=== PATIENT | male | born 1960 | race Caucasian/White ===

== ENCOUNTER 2022-03-02 00:27 | Day surgery (SDC) | payer BC, SELFPAY ==
[2022-02-16 14:58] VITALS: BMI 32.7
--- NOTE | 2022-03-01 15:22 | PM.HPGS ---
History of Present Illness History of Present Illness Consent: Risks, benefits, and alternatives have been discussed and questions answered. Patient agrees to proceed with procedure. Chief complaint: neoplasm screening Narrative: Javier Sparrow is a 61 year old male Referred for colon cancer screening. This will be his 1st colonoscopy. Review of Systems Review of Systems: All systems reviewed & are unremarkable except as noted in HPI and below PMFSH Past Medical History Medical History Acute non-recurrent maxillary sinusitis Anemia (02/03/22) hemoglobin 12.3 with iron 68, vitamin B12 705, folate 19.9 on 02/03/2022. BMI 32.0-32.9,adult BMI 34.0-34.9,adult Change in consistency of stool Colon cancer screening Encounter for wellness examination in adult Gastroesophageal reflux disease without esophagitis History of thyroid cancer History of URI (upper respiratory infection) Hyperlipidemia Cholesterol 126, triglycerides 92, HDL 44, LDL 64 on 02/03/2022. Hypersomnia Impacted cerumen of both ears Irritable bowel syndrome with both constipation and diarrhea Nail fungus both feet Nicotine vapor product user Obesity (BMI 30.0-34.9) Postsurgical hypothyroidism TSH suppressed at 0.09 on 02/03/2022. Primary hypertension Prostate cancer screening PSA 0.59 on 02/03/2022. Restless leg syndrome Iron normal at 68 on 02/03/2022. Seasonal allergic rhinitis Snoring Type 2 diabetes mellitus with diabetic polyneuropathy, without long-term current use of insulin Glucose 163 , hemoglobin A1c 7.1 with urine microalbumin ratio of 7 on 02/03/2022. Family History Family History Father Family history of malignant neoplasm, Onset Age: 78 Mother Family history of malignant neoplasm, Onset Age: 87 Grandparent Family history of malignant neoplasm, Onset Age: 68 Social History Social History Smoking status: Current every day smoker Tobacco type: e-cigarettes/vaping Second hand tobacco smoke exposure: No Alcohol intake: current Alcohol use details: rare Substance use: never Substance use type: does not use Living arrangements: with family Spiritual care concerns: No Meds Home Medications and Allergies Home Medications Medication Instructions Recorded Confirmed Type atorvastatin 40 mg tablet 40 mg PO DAILY #90 tablet 02/02/22 03/02/22 Rx fluticasone propionate 50 1 spray NASAL BID #48 ml 02/02/22 03/02/22 Rx mcg/actuation nasal spray,suspension glipizide 5 mg tablet, extended 5 mg PO . Q.a.m. #90 tablet 02/02/22 03/02/22 Rx release 24 hr hydrochlorothiazide 25 mg tablet 25 mg PO DAILY #90 tablet 02/02/22 03/02/22 Rx lisinopril 40 mg tablet 40 mg PO DAILY #90 tablet 02/02/22 03/02/22 Rx metformin 750 mg tablet,extended 2,250 mg PO DAILY #270 tablet 02/02/22 03/02/22 Rx release 24 hr pantoprazole 40 mg tablet,delayed 40 mg PO BID #180 tablet 02/02/22 03/02/22 Rx release levothyroxine 200 mcg tablet 100 mcg PO DAILY #90 tablet 02/05/22 03/02/22 Rx Allergies Allergy/AdvReac Type Severity Reaction Status Date / Time No Known Allergies Allergy Verified 03/02/22 09:15 Exam Resp: Auscultation: clear to auscultation bilaterally Cardio: Rate: regular rate Rhythm: regular rhythm GI: GI Palp: Yes Soft to palpation and No Tenderness to palpation present (GI) Assessment and Plan Assessment and plan (1) Colon cancer screening: Code(s): Z12.11 - Encounter for screening for malignant neoplasm of colon Status: Acute Assessment and Plan: Colonoscopy with possible biopsy or polypectomy or cautery or injection of substances.
--- NOTE | 2022-03-02 08:58 | WPDANESEPPF ---
Anes - Initial Pre Proc Eval Procedure: Operation Date: 03/02/22 10:30 Proposed Procedures p Screening Colonoscopy - Horace Tan MD Date/Time: 03/02/22 08:58 Surgeon: Horace Tan MD Pre Op Diagnosis: neoplasm screening Patient Data Age: 61 Gender: M Height: 1.93 m Weight: 122 kg Allergies Allergy/AdvReac Type Severity Reaction Status Date / Time No Known Allergies Allergy Verified 03/02/22 09:15 Home Medications Medication Instructions Recorded Confirmed Type atorvastatin 40 mg tablet 40 mg PO DAILY #90 tablet 02/02/22 03/02/22 Rx fluticasone propionate 50 1 spray NASAL BID #48 ml 02/02/22 03/02/22 Rx mcg/actuation nasal spray,suspension glipizide 5 mg tablet, extended 5 mg PO . Q.a.m. #90 tablet 02/02/22 03/02/22 Rx release 24 hr hydrochlorothiazide 25 mg tablet 25 mg PO DAILY #90 tablet 02/02/22 03/02/22 Rx lisinopril 40 mg tablet 40 mg PO DAILY #90 tablet 02/02/22 03/02/22 Rx metformin 750 mg tablet,extended 2,250 mg PO DAILY #270 tablet 02/02/22 03/02/22 Rx release 24 hr pantoprazole 40 mg tablet,delayed 40 mg PO BID #180 tablet 02/02/22 03/02/22 Rx release levothyroxine 200 mcg tablet 100 mcg PO DAILY #90 tablet 02/05/22 03/02/22 Rx Patient hx anesthesia problems: none Family hx anesthesia problems: none Results Review: All pre-operative results and documents have been reviewed as part of the pre-operative evaluation. [facility] Past Medical History Medical History (Updated 02/16/22 @ 12:46 by Fredi Rincon MD) Acute non-recurrent maxillary sinusitis Anemia (02/03/22) hemoglobin 12.3 with iron 68, vitamin B12 705, folate 19.9 on 02/03/2022. BMI 32.0-32.9,adult BMI 34.0-34.9,adult Change in consistency of stool Colon cancer screening Encounter for wellness examination in adult Gastroesophageal reflux disease without esophagitis History of thyroid cancer History of URI (upper respiratory infection) Hyperlipidemia Cholesterol 126, triglycerides 92, HDL 44, LDL 64 on 02/03/2022. Hypersomnia Impacted cerumen of both ears Irritable bowel syndrome with both constipation and diarrhea Nail fungus both feet Nicotine vapor product user Obesity (BMI 30.0-34.9) Postsurgical hypothyroidism TSH suppressed at 0.09 on 02/03/2022. Primary hypertension Prostate cancer screening PSA 0.59 on 02/03/2022. Restless leg syndrome Iron normal at 68 on 02/03/2022. Seasonal allergic rhinitis Snoring Type 2 diabetes mellitus with diabetic polyneuropathy, without long-term current use of insulin Glucose 163 , hemoglobin A1c 7.1 with urine microalbumin ratio of 7 on 02/03/2022. Family History Family History Father Family history of malignant neoplasm, Onset Age: 78 Mother Family history of malignant neoplasm, Onset Age: 87 Grandparent Family history of malignant neoplasm, Onset Age: 68 Social History Social History (Updated 02/02/22 @ 13:16 by Isidra Sherwood MA) Smoking status: Current every day smoker Tobacco type: e-cigarettes/vaping Second hand tobacco smoke exposure: No Alcohol intake: current Alcohol use details: rare Substance use: never Substance use type: does not use Living arrangements: with family Spiritual care concerns: No Anes - Eval Final PreProcedure Day of Procedure 03/02/22 08:58 Patient weight: obese Heart: regular rate and rhythm Lungs: clear to auscultation and normal air movement Airway: Mallampati scale class II Neurological: alert and oriented Last oral intake: >/= 8 hours ASA classification: III Emergent: no Anesthetic plan: proceed Anesthesia type and monitoring: general GIVS Results Review: All pre-operative results and documents have been reviewed as part of the pre-operative evaluation. Informed Consent: The patient's anesthetic plan and its attendant risks and benefits were discussed with the patient/family/POA.
[2022-03-02 09:03] VITALS: BP 158/75; PULSE 78; RESP 18; TEMP 36.4; O2SAT 99; BMI 32.6
[2022-03-02] MEDS: LACTATED RINGERS 1,000 ML 150 ML IV CONT (09:32)
[2022-03-02 09:34] LABS: Glucose Point of Care 168 mg/dl (65-105)
[2022-03-02 10:54] VITALS: BP 90/38; PULSE 69; RESP 16; O2SAT 100
[2022-03-02 11:04] VITALS: BP 111/66; PULSE 66; RESP 18; O2SAT 100
[2022-03-02 11:14] VITALS: BP 122/67; PULSE 64; RESP 20; O2SAT 100
== END 2022-03-02 11:25 | disposition home or self-care (01) ==
PROVIDERS: PCP Family Medicine; Visit Provider Internal Medicine Gastroenterology
PROC: 0DJD8ZZ Inspection of Lower Intestinal Tract, Via Natural or Artificial Opening Endoscopic (ICD-10-PCS; CPT 45378; principal; 2022-03-02 10:30)
DX: Z12.11 Encounter for screening for malignant neoplasm of colon (principal); K62.1 Rectal polyp; E78.5 Hyperlipidemia, unspecified; I10 Essential (primary) hypertension; K58.2 Mixed irritable bowel syndrome; E89.0 Postprocedural hypothyroidism; G25.81 Restless legs syndrome; E11.42 Type 2 diabetes mellitus with diabetic polyneuropathy; K21.9 Gastro-esophageal reflux disease without esophagitis; D64.9 Anemia, unspecified; Z85.850 Personal history of malignant neoplasm of thyroid; Z79.84 Long term (current) use of oral hypoglycemic drugs; F17.290 Nicotine dependence, other tobacco product, uncomplicated; E66.9 Obesity, unspecified; Z68.32 Body mass index [BMI] 32.0-32.9, adult
CPT/HCPCS: 45385; 82948; 88305; J2704; J7120

== ENCOUNTER 2022-03-09 07:31 | Outpatient (CLI) | payer BC, SELFPAY ==
--- NOTE | 2022-03-20 15:51 | WPDHOMESLEEP ---
Sleep Study - Home Unattended Date of Study: 03/09/22 Ordering Provider: Fredi Rincon MD Interpreting Provider: Giovanna Krause, DO Home Sleep Study Type: Apnea Link Air Height: 1.93 m Weight: 122.47 kg Body Mass Index: 32.8 Neck Circumference (inches): 18.75 [place]: 5 Reason for Sleep Study Loud snoring, hypersomnia Sleep History The patient is a 61-year-old male with GERD, IBS, hypertension, hyperlipidemia, diabetes, history of thyroid cancer with post surgical hypothyroidism and obesity that had a sleep study ordered by his primary care for evaluation of sleep apnea. 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 He denies awakening from sleep short of breath. He denies awakening at night with heartburn, belching or cough. He constantly snores loud enough that others complain. He occasionally wakes up gasping for air throughout the night. He denies having breathing problems at night observed by himself. He rarely sweats excessively at night. He occasionally has heart palpitations or irregular heartbeats during the night. He occasionally falls asleep during the day but never while driving. He denies sleep paralysis and cataplexy. He rarely has trouble at school or work due to sleepiness. He occasionally experiences vivid dreamlike scenes upon awakening or falling asleep. He rarely has nightmares. He occasionally remembers his dreams. He rarely has thoughts racing through his mind. He rarely feels sad or depressed. He rarely has anxiety. He occasionally has muscular tension. He frequently notices parts of his body jerk. He constantly kicks during the night. He occasionally has crawling and aching feelings in his legs as well as leg pain during the night. He rarely grinds his teeth during sleep but never awakens with morning jaw pain. He is occasionally bothered by pain during the day but rarely awakened by pain during the night. He occasionally wakes up feeling stiff in the morning. He occasionally wakes up with sore achy muscles. He rarely wakes up with pain in the neck, spine or other joints. He goes to bed at 8:30 p.m. on weekdays and 11:30 p.m. on the weekends. He can fall asleep within 5 minutes. He wakes up 3 times throughout the night to urinate. He is able to fall back asleep within a few minutes. He wakes up at 3:30 a.m. on weekdays and 6:00 a.m. on the weekends. He typically gets 6 hours of sleep per night. He will stay in bed for a few minutes after waking up in the morning. He currently lives with his . He does not consume any caffeinated beverages within 2 hours of bedtime. He does not engage in physical exercise before bedtime. He denies reading and watching television before falling asleep. He will take naps in the afternoon or the evening and they are refreshing. He will drink 2 cups of caffeinated beverage per day. He quit smoking 10 years ago. He denies alcohol and recreational drug use. [facility] Past Medical History Medical History Acute non-recurrent maxillary sinusitis Anemia (02/03/22) hemoglobin 12.3 with iron 68, vitamin B12 705, folate 19.9 on 02/03/2022. BMI 32.0-32.9,adult BMI 34.0-34.9,adult Change in consistency of stool Colon cancer screening Encounter for wellness examination in adult Gastroesophageal reflux disease without esophagitis History of thyroid cancer History of URI (upper respiratory infection) Hyperlipidemia Cholesterol 126, triglycerides 92, HDL 44, LDL 64 on 02/03/2022. Hypersomnia Impacted cerumen of both ears Irritable bowel syndrome with both constipation and diarrhea Nail fungus both feet Nicotine vapor product user Obesity (BMI 30.0-34.9) Postsurgical hypothyroidism TSH suppressed at 0.09 on 02/03/2022. Primary hypertension Prostate cancer screening PSA 0.59 on 02/03/2022. Rectal polyp (03/02/22) two benign appearing rectal polyps on colonoscopy 03/02/2022. Restless leg syndrome I
[2022-03-20 16:12] VITALS: BMI 32.8
== END 2022-03-14 14:31 | disposition home or self-care (01) ==
PROVIDERS: PCP Family Medicine; Visit Provider Family Medicine
DX: G47.33 Obstructive sleep apnea (adult) (pediatric) (principal)
CPT/HCPCS: 95806